=== PATIENT | male | born 1975 | race Asian ===

== ENCOUNTER 2024-01-17 20:26 | Emergency (ER) | payer OTHER ==
[~2024-01-17] VITALS: Ht 162.6 cm; Wt 99.8 kg
[2024-01-17 20:36] VITALS: PULSE 78; RESP 18; TEMP 98.1
[2024-01-17] MEDS ORDERED: FUROSEMIDE INJ 10 MG/ML 4 ML VIAL ONE (22:41)
[2024-01-17] MEDS ORDERED: DOXYCYCLINE HY100 MG PO (22:41)
[2024-01-17] MEDS: FUROSEMIDE INJ 10 MG/ML 2 ML VIAL IV ONE (22:45)
[2024-01-17 22:55] VITALS: BP 161/98; PULSE 78; RESP 20; TEMP 98.1; O2SAT 95
== END 2024-01-17 22:55 | disposition home or self-care (01) ==
LOC: FSED 20:36
DX: R06.02 Shortness of breath (principal); J40 Bronchitis, not specified as acute or chronic; R05.9 Cough, unspecified; R60.9 Edema, unspecified
CPT/HCPCS: 71046; 93005; 99283; J1940 ×2